=== PATIENT | male | born 1935 | race Caucasian/White ===

== ENCOUNTER 2016-09-27 05:23 | Day surgery (SDC) | payer OTHER, BC ==
[~2016-09-27] VITALS: Ht 172.7 cm; Wt 81.7 kg
[~2016-09-27 05:23] MED LIST: ALTACE10 MG PO; ASPIR 8181 M1 PO; ATENOLOL50 MG PO; AVODART0.5 MG PO; LIPITOR40 MG PO; LOW DOSE ASPIRI81 M2 PO; MOBIC7.5 MG PO; NEXIUM40 MG PO; OMEPRAZOLE40 M1 PO; TUMS500 MG PO; ZETIA10 MG PO; ZOFRAN ODT4 MG PO
[2016-09-27 06:12] VITALS: BP 155/91
[2016-09-27] MEDS ORDERED: NORCO 5/3251 TABLET PO (08:50)
[2016-09-27 09:50] VITALS: BP 157/85
[2016-09-27 11:05] VITALS: BP 162/82
== END 2016-09-27 11:20 | disposition home or self-care (01) ==
LOC: SDC 05:23
PROC: 0YU60JZ Supplement Left Inguinal Region with Synthetic Substitute, Open Approach (ICD-10-PCS; principal; 2016-09-27)
DX: K40.91 Unilateral inguinal hernia, without obstruction or gangrene, recurrent (principal); I10 Essential (primary) hypertension; I25.10 Atherosclerotic heart disease of native coronary artery without angina pectoris; Z85.828 Personal history of other malignant neoplasm of skin; Z79.82 Long term (current) use of aspirin; Z80.0 Family history of malignant neoplasm of digestive organs; Z82.49 Family history of ischemic heart disease and other diseases of the circulatory system
CPT/HCPCS: J0330; J0690; J2405; J2710; J3010